=== PATIENT | female | born 2000 | race Caucasian/White ===

== ENCOUNTER 2021-11-11 10:59 | Emergency (ER) | payer OTHER, SELFPAY ==
--- NOTE | 2021-11-11 11:12 | ED.URI ---
HPI - URI/Sore Throat General Chief Complaint: Upper Respiratory Infection Stated Complaint: sorethroat Time Seen by Provider: 11/11/21 11:13 Source: patient Mode of arrival: ambulatory Limitations: no limitations History of Present Illness HPI Narrative: Ms. Siu is a 21-year-old female patient presenting to the clinic today with complaints of sore throat x2 days. She reports she feels as though she is swallowing nails. She denies any fever or chills. She denies any known exposure to anybody with COVID, flu, or strep. She denies any other family members with this illness. MD elicited complaint: sore throat Related Data Allergies Allergy/AdvReac Type Severity Reaction Status Date / Time No Known Allergies Allergy Verified 11/11/21 11:26 Review of Systems Review of Systems: Pertinent positives per HPI. Patient denies any fever, chills, rash, headache, visual changes, dizziness, cough, runny nose, shortness of breath, chest pain, palpitations, nausea, vomiting, diarrhea, constipation, abdominal pain, or any urinary issues. Exam Narrative: General: Well-developed, well nourished, in no apparent distress Head: Normocephalic, atraumatic Eyes: Pupils equally round and reactive to light bilaterally, EOM intact, sclera and conjunctive clear, no discharge, lids normal Ears: TMs intact and clear, ear canals clear, no drainage, grossly hearing normal. Nose: Nares patent, no discharge, no inflammation, no sinus tenderness. Mouth: Oropharynx without lesions or masses, good dentition, MMM. Oropharynx red, tonsillar swelling 1+ with white exudate bilaterally Neck: Supple, trachea midline, positive enlargement of anterior o cervical nodes, no thyroid masses or goiter palpable. Cardio: Regular rate and rhythm, s1 and s2 normal, no murmur appreciated. Resp: Clear to auscultation bilaterally anteriorly and posteriorly, no rhonchi, rales, wheezing or rubs Course Course Emergency Course: This electronic medical record was dictated using [email or web address] recognition software and may contain grammatical errors. Level of Care: Express Care Visit Vital Signs Vital signs: Vital Signs Temperature 36.2 C L 11/11/21 11:22 Pulse Rate 65 11/11/21 11:22 Respiratory Rate 18 11/11/21 11:22 Blood Pressure 115/59 L 11/11/21 11:22 Pulse Oximetry 100 11/11/21 11:22 Oxygen Delivery Room Air 11/11/21 11:22 Temperature 36.2 C L 11/11/21 11:22 Pulse Rate 65 11/11/21 11:22 Respiratory Rate 18 11/11/21 11:22 Blood Pressure 115/59 L 11/11/21 11:22 Pulse Oximetry 100 11/11/21 11:22 Oxygen Delivery Room Air 11/11/21 11:22 Vital signs reviewed MDM - URI/Sore Throat MDM Narrative Medical decision making narrative: At the time of visit patient was resting comfortably on the exam table. Differential Diagnosis Differential diagnosis: Likely upper respiratory infection, sinusitis, viral infection, bronchitis, influenza and pharyngitis Lab Data Labs: Strep Screen Positive Group A Strep *(Reference Range: Negative)* Discharge Plan Discharge Clinical Impression: Strep pharyngitis Patient Disposition: Home, Self-Care Condition: Stable Instructions: Antibiotic Form, Strep Throat (ED) Additional Instructions: Strep screen was obtained and was positive in the clinic Amoxicillin as prescribed Change toothbrush in 24 hours after initiation the antibiotics Take prescription medications only as prescribed Increase fluids and stay well hydrated Tylenol/motrin for pain/fever Flonase and OTC antihistamines as directed Vicks vapor rub to open sinuses Sinus rinses for congestion Cepacol spray, cough drops, throat lozenges, warm tea with honey/lemon, gargle salt water to soothe throat BRAT diet for diarrhea Clear liquids x 24 hours then advance as tolerated for nausea/vomiting May return to the clinic if symptoms wors
[2021-11-11 11:22] VITALS: BP 115/59; PULSE 65; RESP 18; TEMP 36.2; O2SAT 100
== END 2021-11-11 11:36 | disposition home or self-care (01) ==
PROVIDERS: Emergency Provider Nurse Practitioner Family
DX: J02.0 Streptococcal pharyngitis (principal)
CPT/HCPCS: 87880; 99203; G0463